=== PATIENT | male | born 1985 | race Caucasian/White ===

== ENCOUNTER 2019-12-08 08:06 | Outpatient (CLI) | payer OTHER, SELFPAY ==
[2019-12-08 08:47] LABS: Hematocrit 50.5 % (42.0-52.0); Hemoglobin 17.4 g/dL (14.0-18.0); Immature Platelet Fraction Pct 2.1 % (0.9-11.2); Immature Reticulocyte Fraction 8.6 % (3.0-15.9); Mean Corpuscular HGB Conc 34.5 g/dl (32-36); Mean Corpuscular Hemoglobin 32.3 pg (26-34); Mean Corpuscular Volume 93.9 fl (80-100); Mean Platelet Volume 9.2 fl (7.4-10.4); Platelet Count Result 155 k/mm3 (150-375); Red Blood Count 5.38 M/mm3 (4.6-6.20); Red Cell Distribution Width 11.9 % (11.5-14.5); Reticulocyte Hemoglobin Conten 37.2 pg (28.2-35.7); Reticulocyte Percent 1.38 % (0.7-4.3); Reticulocytes Absolute 0.07 B/L (32.2-175.7); White Blood Count 4.1 K/mm3 (4.5-10.0)
[2019-12-08 08:54] LABS: Hemoglobin A1C 6.2 % (<5.7)
[2019-12-08 09:04] LABS: Alanine Aminotransferase 112 U/L (4-50); Albumin Level 4.2 g/dL (3.5-5.1); Alkaline Phosphatase 77 U/L (38-126); Anion Gap 6 mmol/L (8-16); Aspartate Amino Transferase 109 U/L (17-59); Bilirubin,Total 0.7 mg/dL (0.2-1.3); Blood Urea Nitrogen 15 mg/dL (9-20); Calcium 8.8 mg/dL (8.4-10.2); Carbon Dioxide 29 mmol/L (22-30); Chloride 104 mmol/L (98-107); Cholesterol 148 mg/dL (0-200); Estimated Glomerular Filt Rate > 60; Glucose 112 mg/dL (75-110); HDL Direct 30 mg/dL; Iron 102 ug/dL (49-181); Potassium 4.3 mmol/L (3.4-5.0); Sodium 139 mmol/L (137-145); Triglycerides 155 mg/dL (<150)
[2019-12-08 09:15] LABS: Percent Iron Saturation 27 % (20-50)
[2019-12-08 09:16] LABS: LDL Cholesterol Direct 96 mg/dL
[2019-12-08 09:21] LABS: Free T4 Free Thyroxine 0.76 ng/mL (0.78-2.19)
[2019-12-08 10:10] LABS: Folic Acid 10.6 ng/mL (2.76->20)
[2019-12-12 05:57] LABS: Thyroid Peroxidase Antibodies 9 IU/mL (<9)
[2019-12-12 06:39] LABS: Triiodothyronine T3 Free 3.2 pg/mL (2.3-4.2)
== END 2019-12-08 08:07 | disposition home or self-care (01) ==
LOC: ANHLAB 08:12
PROVIDERS: PCP Internal Medicine Endocrinology, Diabetes & Metabolism; Visit Provider Internal Medicine Endocrinology, Diabetes & Metabolism
DX: R74.8 Abnormal levels of other serum enzymes (principal)
CPT/HCPCS: 36415; 80053; 80061; 82607; 82728; 82746; 83036; 83540; 83550; 84439; 84443; 84481; 85027; 85046; 85055; 86376